=== PATIENT | male | born 1940 | race Caucasian/White ===

== ENCOUNTER 2017-03-20 08:52 | Inpatient (IN) | payer OTHER ==
[2017-03-20] VITALS (40 sets, daily range): BP systolic 81–125; BP diastolic 26–78
[~2017-03-20] VITALS: Ht 157.5 cm; Wt 132.9 kg
[2017-03-20] MEDS ORDERED: PROPOFOL 100 ML IV ONE (08:59)
[2017-03-20] MEDS ORDERED: IV NS 0.9% 500 ML BAG IV ONE (09:00)
--- NOTE | 2017-03-20 09:00 | NUR ---
BBRA 78 FROM [facility]: ALOC AND LOW O2 SAT AT 80'S RA. INTUBATED ASSEMBLER MOVEMENT. BS IN FIELD 131. PATIENT ALERT, NON VERBAL. BREATHING VIA ET TUBE, RT AT BEDSIDE FOR MECHANICAL VENT. O2 WNL. PATIENT IS HYPOTENSIVE, BUT NAD. SAFETY AND COMFORT MEASURES IN PLACE. MD AT BEDSIDE FOR EVAL.
--- NOTE | 2017-03-20 09:30 | NUR ---
RT PT CAME IN WITH RESP DISTRESS INTUBATED BY THE PARAMEDICS W/ 6.5 ETT 25CM AT LIP LINE INTACT AND SECURED, PT REC 100% VIA BAG/MASK. PLACED PT ON VENT WITH AC 600 14 +5 100%, ABG DRAWN RIGHT AFTER PLACING PT ON VENT RESULTING IN HIGH C02, DR REID NOTIFIED, TITRATED 02 60% SP02= 100%. PT SEEMS COMFORTABLE VENT PLUGGED IN RED OUTLET, BAG AND MASK AT BEDSIDE. PT SX LARGE AMOUNT OF THICK PINK- YELLOW SECRETIONS, SAMPLE OBTAINED AND SENT TO LAB. WILL CONTINUE TO MONITOR Addendum: 03/20/17 at 1000 by JAMIL GARCIA RT Amended: Links added. Addendum: 03/20/17 at 1650 by JAMIL GARCIA RT ETT TUBE 7.0, PARAMEDICS GAVE WRONG INFORMATION
[2017-03-20 09:31] LABS: APPEARANCE,URINE CLOUDY (CLEAR); BILIRUBIN,URINE NEGATIVE (NEGATIVE); BLOOD, URINE 1+ Ery/uL (NEGATIVE); COLOR,URINE YELLOW (YELLOW); KETONES,URINE NEGATIVE (NEGATIVE); LEUKOCYTE ESTERASE ,URINE NEGATIVE (NEGATIVE); NITRITE, URINE NEGATIVE (NEGATIVE); PH,URINE 5.5 (5.0-8.0); PROTEIN,URINE 2+ mg/dl (NEGATIVE); UGLUCOSE NEGATIVE (NEGATIVE); UROBILINOGEN,URINE 0.2 EU/dL (0.2)
[2017-03-20 09:33] LABS: BACTERIA,URINE Rare /HPF (None Seen); SQUAMOUS EPITHELIAL CELL,UR Few /HPF (None Seen); WBC,URINE 0-2 /HPF (0-3)
[2017-03-20 09:36] LABS: EOSINOPHILS % (AUTO) 0.1 % (0.0-6.0); HEMATOCRIT 31 % (39-51); HEMOGLOBIN 10.1 g/dL (13.5-17.5); LYMPHOCYTES # (AUTO) 0.6 /CMM (0.8-4.8); LYMPHOCYTES % (AUTO) 4.8 % (20.0-44.0); MEAN CORPUSCULAR HEMOGLOBIN 34 PG (26.0-33.0); MEAN CORPUSCULAR HGB CONC 32 g/dl (31.0-36.0); MEAN CORPUSCULAR VOLUME 107 fL (80-96); MONOCYTES # (AUTO) 0.8 /CMM (0.1-1.30); MONOCYTES % (AUTO) 7.1 % (2.0-12.0); NEUTROPHILS # (AUTO) 10.5 /CMM (1.8-8.9); PLATELET COUNT (AUTO) 128 /CMM (150-450); RDW COEFFICIENT OF VARIATION 17.5 (11.5-15.0); RED BLOOD CELL COUNT(AUTO) 2.95 MIL/uL (4.5-6.0); WHITE BLOOD COUNT (AUTO) 11.9 K/uL (4.3-11.0)
[2017-03-20] MEDS ORDERED: HYDR-4077 PO (09:37)
[2017-03-20] MEDS ORDERED: PANT40TA2 PO (09:37)
[2017-03-20] MEDS ORDERED: BLOO-668 IN (09:37)
[2017-03-20] MEDS ORDERED: NA P133E RC (09:37)
[2017-03-20] MEDS ORDERED: ACET-868 PO (09:37)
[2017-03-20] MEDS ORDERED: FLUT1BLS IH (09:37)
[2017-03-20] MEDS ORDERED: ASPI-1152 PO (09:37)
[2017-03-20] MEDS ORDERED: METO25TA20 PO (09:37)
[2017-03-20] MEDS ORDERED: ALLO300T2 PO (09:37)
[2017-03-20] MEDS ORDERED: BISA10SU8 RC (09:37)
[2017-03-20] MEDS ORDERED: POTA10CA43 PO (09:37)
[2017-03-20] MEDS ORDERED: NITR0.4T48 SL (09:37)
[2017-03-20] MEDS ORDERED: TIOT18CA3 IH (09:37)
[2017-03-20] MEDS ORDERED: MAGN400O6 PO (09:37)
[2017-03-20] MEDS ORDERED: INSU100V27 SQ (09:37)
--- NOTE | 2017-03-20 09:38 | NUR ---
BLOCK INSPECTOR AT BEDSIDE.
[2017-03-20 09:39] LABS: CALCIUM, SERUM 8.6 mg/dL (8.5-10.1); CARBON DIOXIDE 35 mmol/L (21-32); CHLORIDE 103 mmol/L (98-107); CREATININE 2.3 mg/dL (0.6-1.3); GLUCOSE 135 mg/dL (74-106); POTASSIUM 4.9 mmol/L (3.5-5.1); SODIUM SERUM 142 mmol/L (136-145); UREA NITROGEN, BLOOD 43 mg/dL (7-18)
[2017-03-20 09:41] LABS: ABG BASE EXCESS 3.4 mmol/L; ABG PCO2 80.8 mmHg (35.0-45.0); ABG PH 7.226 (7.350-7.450); ABG PO2 223.8 mmHg (75.0-100.0); AaDO2 408.4 mmHg; COHb 0.8 % (0.5-1.5); MetHb 0.2 % (0.0-1.5); SITE, ABG Right Radial; VENT MODE, BG 100% BAG&MASK
[2017-03-20 09:44] LABS: ALANINE AMINOTRANSFERASE 50 U/L (12-78); ALBUMIN 3.1 g/dL (3.4-5.0); ALKALINE PHOSPHATASE 63 U/L (46-116); ASPARTATE AMINOTRANSFERASE 23 U/L (15-37); BILIRUBIN,DIRECT 0.3 mg/dL (0.0-0.2); BILIRUBIN,TOTAL 0.8 mg/dL (0.2-1.0); TOTAL PROTEIN, SERUM 5.7 g/dL (6.4-8.2)
[2017-03-20 09:46] LABS: TROPONIN I 0.074 ng/mL (0.00-0.056)
--- NOTE | 2017-03-20 10:02 | NUR ---
BRIELLE ECHEVARRIA [phone]
[2017-03-20] MEDS ORDERED: VANCOMYCIN 1 GM in IV D5W 250 ML IV SCH (10:30)
[2017-03-20] MEDS ORDERED: LEVOFLOXACIN 750 MG /D5W 150ML 750 MG in PREMIX 1 EA IV SCH (10:30)
--- NOTE | 2017-03-20 11:00 | NUR ---
REPORT GIVEN TO RN, JOB FOR DAVID UPON ADMISSION.
--- NOTE | 2017-03-20 11:10 | NUR ---
PATIENT TRANSPORTED TO ICU 262 VIA ACLS PROTOCOL. RN, JOB TO PROVIDE DAVID. IV LEVAQUIN ENDORSED TO JOB FOR ADMINISTRATION.
--- NOTE | 2017-03-20 11:50 | NUR ---
PT RECVD IN ICU 262. INTUBATED ON VENTILATOR. FAMILY AT BEDSIDE: HE WAS ADMITTED TO [place] February FOR CHF EXACERBATION, WHERE HE GOT DIALYSIS FOR THE FIRST TIME. HE ALSO HAD A PARACENTESIS AT [facility] AND WAS DISCHARGED 4 DAYS LATER MAR 18. HE SPENT 2 DAYS AT [facility] WHERE HIS CONDITION DECLINED. PER ER REPORT, PT WAS INTUBATED IN THE FIELD. DR. BOSTON ON THE UNIT FOR EVAL ADMISSION ORDERS. HD WILL BE DONE TODAY ARRANGED BY DR. ECHEVARRIA. US GUIDED PARACENTESIS ALSO ORDERED BY DR. BOSTON FOR ASCITES. SBP IS LABILE 80-100, DR. BOTSON ORDERS FOR PICC LINE, BUFFING MACHINE OPERATOR SEMIAUTOMATIC NOTIFIED WHO SAYS RENUKA WESLEY WILL BE ABLE TO COME IN FOR PLACEMENT. Addendum: 03/20/17 at 1410 by BAM LINO RN DR. BOSTON RECONCILES MEDICATIONS ORDERS TO STOP ALL THE HOME MEDS. PLACE PT NPO X MEDS, AND ACCUCHECK NPO SLIDING SCALE. LEVOPHED AND DIPRIVAN ORDERED.
[2017-03-20] MEDS ORDERED: PIPERACILLIN /TAZOBACTAM 3.375 G in IV D5W 50 ML IV SCH (12:00)
[2017-03-20] MEDS ORDERED: NOREPINEPHRINE 16 MG in IV D5W 500 ML IV PRN (12:30)
[2017-03-20] MEDS ORDERED: NOREPINEPHRINE 8 MG in IV D5W 500 ML IV PRN (12:30)
[2017-03-20] MEDS: ACETYLCYSTEINE 10% SOLN 400 MG/4 ML VIAL NEB SCH ×3 (12:30→23:30)
[2017-03-20] MEDS ORDERED: IPRATROPIUM NEB FS 0.5 MG/2.5 ML AMPUL.NEB NEB PRN (12:30)
[2017-03-20] MEDS ORDERED: DEXTROSE 50%-WATER 50 ML DISP.SYRIN IV PRN (12:30)
[2017-03-20] MEDS ORDERED: LEVALBUTEROL HCL NEB 1.25 MG/0.5 ML VIAL.NEB NEB SCH (12:30)
[2017-03-20 12:46] LABS: ABG BASE EXCESS 0.7 mmol/L; ABG OXYGEN SATURATION 98.1 % (92.0-98.5); ABG PCO2 55.6 mmHg (35.0-45.0); ABG PH 7.312 (7.350-7.450); ABG PO2 137.5 mmHg (75.0-100.0); AaDO2 229.1 mmHg; COHb 0.3 % (0.5-1.5); MetHb 0.5 % (0.0-1.5); O2Hb 97.3 % (94.0-97.0); PEEP,BG 5 cm H2O; SITE, ABG Right Radial; VENT MODE, BG AC 14 600 60% +5; VT, ABG 600 mL
[2017-03-20] MEDS: methylPREDNISolone SOD SUCC 40 MG/ML VIAL IV SCH ×2 (12:55→16:23)
[2017-03-20] MEDS: HEPARIN SODIUM, PORCINE 5000 UNITS/1 ML VIAL SQ SCH ×2 (12:56→21:07)
[2017-03-20] MEDS: PANTOPRAZOLE 40 MG VIAL IV SCH (12:57)
[2017-03-20] MEDS ORDERED: ALBUMIN 25% 25 GM in PREMIX 1 EA IV PRN (13:00)
[2017-03-20] MEDS ORDERED: ALBUMIN 25% 25 GM in PREMIX 1 EA IV ONE (13:00)
--- NOTE | 2017-03-20 13:18 | NUR ---
RADIOLOGY CALLS STATES THAT THEY ARE UNABLE TO DO THE PARACENTESIS TODAY. ALSO PATIENT, NEEDS TO BE OFF HEPARIN SQ DOSE FOR 24HRS. TARGET TIME FOR THE PARACENTESIS WILL BE THURSDAY. WILL PASS ON IN REPORT TO HOLD THE HEPARIN.
--- NOTE | 2017-03-20 13:34 | NUR ---
pt's Rachel gives TO consent for PICC line. Still awaiting for Dr. Rainey for placement, he states he is at [place] and is coming later today but unable to give specific time. Pt's BP ranging from 80-100.
[2017-03-20] MEDS: ALBUTEROL HALF STRENGTH 1.25 MG/3 ML VIAL.NEB NEB SCH ×2 (13:58→18:55)
[2017-03-20] MEDS: IPRATROPIUM NEB FS 0.5 MG/2.5 ML AMPUL.NEB NEB SCH ×2 (13:58→18:55)
--- NOTE | 2017-03-20 14:08 | NUR ---
HD NURSE IN FOR TREATMENT.
[2017-03-20] MEDS: ALBUMIN 25% 25 GM in PREMIX 1 EA IV PRN (14:13)
--- NOTE | 2017-03-20 16:00 | NUR ---
HD COMPLETE 2200 OUT.
[2017-03-20] MEDS: PROPOFOL 100 ML IV PRN (16:05)
--- NOTE | 2017-03-20 16:41 | NUR ---
RENUKA WESLEY IN, PLACES PICC LINE LEFT UPPER ARM. ORDERS FOR CHEST XRAY FOR PLACEMENT. RADIOLOGY CALLS AND STATES THAT BOTH PORTABLE CHEST XRAYS ARE DOWN (BEING CHARGED) AT THE MOMENT THEY WILL COME SOON POSSIBLE. I TOLD THEM THAT THIS IS A STAT ORDER THAT NEEDS TO BE DONE.
--- NOTE | 2017-03-20 16:58 | NUR ---
CXR TAKEN, RENUKA WESLEY ON THE UNIT READS RESULTS AND OKAYS TO USE PICC LINE.
[2017-03-20] MEDS: BLOOD SUGAR DIAGNOSTIC 1 EACH STRIP IN SCH (19:34)
--- NOTE | 2017-03-20 19:46 | NUR ---
ICU/RN RECEIVED PT SEDATED ON DIPRIVAN AT 8MCG/KG/MIN.ON VENT VIA ORAL ETT,02 SAT 100% 0N 45% FIO2.
[2017-03-20] MEDS: PIPERACILLIN /TAZOBACTAM 2.25 G in IV D5W 50 ML IV SCH (21:05)
[2017-03-20] MEDS ORDERED: IV NS 0.9% 250 ML IV PRN (21:30)
--- NOTE | 2017-03-20 23:00 | NUR ---
ICU/RN SOFT WRIST RESTRAINTS DC'D.
--- NOTE | 2017-03-20 23:56 | NUR ---
Received pt on vent support, pt stable on current settings, no SOB or respiratory distress noted, ventilator is plugged into red outlet, alarms audible and on. Ambu bag at bedside, will continue monitoring per MDS orders. Addendum: 03/20/17 at 2357 by REBEKA TONEY RT Amended: Links added.
[2017-03-20] MEDS: IV NS 0.9% 100 ML IV PRN (23:59)
[2017-03-21] VITALS (63 sets, daily range): BP systolic 88–139; BP diastolic 54–83
[2017-03-21] MEDS: BLOOD SUGAR DIAGNOSTIC 1 EACH STRIP IN SCH ×4 (00:03→17:49)
[2017-03-21] MEDS: IPRATROPIUM NEB FS 0.5 MG/2.5 ML AMPUL.NEB NEB SCH ×4 (01:21→19:12)
[2017-03-21] MEDS: ALBUTEROL HALF STRENGTH 1.25 MG/3 ML VIAL.NEB NEB SCH ×4 (01:21→19:12)
--- NOTE | 2017-03-21 03:15 | NUR ---
ICU/RN TRANSFERRED TO [facility] DREW 11 W/4RN,AND 1RT IN ATTENDANCE.PT AWAKE ALERT FOLLOWS SIMPLE COMMANDS.ON LEVOPHED DRIP AT 2MCG/MIN DIPRIVAN AT 8MCG/KG.MIN.
--- NOTE | 2017-03-21 03:15 | NUR ---
ICU/RN TRANSFERRED TO [facility] MAX11 4RN'S AND 1RT IN ATTENDANCE.PT AWAKE ALERT FOLLOWS COMMANDS.LEVOPHED DRIP REMAINS AT 2MCG/MIN AND DIPRIVAN AT 8MCG/KG/MIN.DENIES PAIN OR DISCOMFORT.
[2017-03-21] MEDS: PROPOFOL 100 ML IV PRN ×2 (04:34→16:04)
[2017-03-21] MEDS: PIPERACILLIN /TAZOBACTAM 2.25 G in IV D5W 50 ML IV SCH (04:43)
[2017-03-21 05:08] LABS: ALANINE AMINOTRANSFERASE 33 U/L (12-78); ALBUMIN 2.7 g/dL (3.4-5.0); ALKALINE PHOSPHATASE 45 U/L (46-116); ASPARTATE AMINOTRANSFERASE 14 U/L (15-37); BILIRUBIN,TOTAL 1.2 mg/dL (0.2-1.0); CALCIUM, SERUM 8.8 mg/dL (8.5-10.1); CARBON DIOXIDE 30 mmol/L (21-32); CHLORIDE 106 mmol/L (98-107); CREATININE 1.9 mg/dL (0.6-1.3); GLUCOSE 146 mg/dL (74-106); MAGNESIUM 1.8 mg/dL (1.8-2.4); POTASSIUM 4.2 mmol/L (3.5-5.1); SODIUM SERUM 146 mmol/L (136-145); TOTAL PROTEIN, SERUM 4.9 g/dL (6.4-8.2); UREA NITROGEN, BLOOD 44 mg/dL (7-18)
[2017-03-21 05:09] LABS: HEMATOCRIT 26 % (39-51); HEMOGLOBIN 8.3 g/dL (13.5-17.5); LYMPHOCYTES # (AUTO) 0.3 /CMM (0.8-4.8); LYMPHOCYTES % (AUTO) 2.6 % (20.0-44.0); MEAN CORPUSCULAR HEMOGLOBIN 34 PG (26.0-33.0); MEAN CORPUSCULAR HGB CONC 33 g/dl (31.0-36.0); MEAN CORPUSCULAR VOLUME 105 fL (80-96); MONOCYTES # (AUTO) 0.4 /CMM (0.1-1.30); MONOCYTES % (AUTO) 3.8 % (2.0-12.0); NEUTROPHILS # (AUTO) 9.7 /CMM (1.8-8.9); NEUTROPHILS % (AUTO) 93.6 % (43.0-81.0); PLATELET COUNT (AUTO) 87 /CMM (150-450); RDW COEFFICIENT OF VARIATION 17.1 (11.5-15.0); RED BLOOD CELL COUNT(AUTO) 2.42 MIL/uL (4.5-6.0); WHITE BLOOD COUNT (AUTO) 10.4 K/uL (4.3-11.0)
[2017-03-21] MEDS: INSULIN REGULAR, HUMAN 100 UNIT/ML 3 ML VIAL SQ PRN ×2 (05:53→17:49)
[2017-03-21 06:05] LABS: LYMPHOCYTES % (MANUAL) 6 % (16-48); METAMYELOCYTES % 1 % (0-0); MONOCYTES % (MANUAL) 5 % (0-11.0); NEUTROPHILS % (MANUAL) 88 (42-76)
--- NOTE | 2017-03-21 07:00 | NUR ---
FRICTION PAINT MACHINE TENDER- Initial Note Received pt orally intubated ETT 6.5, 23 cm @ the lip. Respirations even and unlabored, no sob or distress present. Pt on Diprivan gtt at 8 mcg/min but is arousable by name, awake, alert and able to follow commands. Bedside monitor reveals controlled A-Fib. OGT present and currently clamped. Byers catheter draining to gravity clear, yellow urine. RAC 20G HL and NIRALI PICC line present and running NS @ TKO. Levophed gtt turned off, will monitor BP closely. Safety measures taken: bed locked and in low position, side rails up x2 and bed alarm on, will continue to monitor. Addendum: 03/21/17 at 0745 by KLARISSA MURILLO RN ERROR on previous note: ETT rests at 25 cm @ the lip.
[2017-03-21] MEDS: ACETYLCYSTEINE 10% SOLN 400 MG/4 ML VIAL NEB SCH ×3 (07:35→22:37)
[2017-03-21] MEDS ORDERED: ATOR10TA PO (07:39)
--- NOTE | 2017-03-21 07:58 | NUR ---
PT REC'D INTUBATED VIA 7.0 ETT AT 25CM AT THE LIP. VENT SETTINGS PER MD REQUEST. VENT ALARMS CHECKED AND AUDIBLE PER POLICY. VENT PLUGGED INTO RED OUTLET. AMBU BAG AT HOB. Addendum: 03/21/17 at 0800 by ASYA MENDOZA RT Amended: Links added.
[2017-03-21] MEDS: methylPREDNISolone SOD SUCC 40 MG/ML VIAL IV SCH ×3 (08:24→17:58)
[2017-03-21] MEDS: HEPARIN SODIUM, PORCINE 5000 UNITS/1 ML VIAL SQ SCH ×2 (09:00→20:51)
--- NOTE | 2017-03-21 09:00 | NUR ---
RECEIVING TEAM MEMBER- Sedation Vacation done. Diprivan turned off. Pt awake, alert, calm and able to follow commands. No distress noted. Diprivan restarted at previous rate per protocol. Will continue to monitor.
--- NOTE | 2017-03-21 09:03 | NUR ---
US GUIDED PARACENTESIS WILL BE HOLD UNTIL THURSDAY, NURSE KLARISSA IS AWARE. TALKED TO RN AT 0848 ON 03/21/2017.
[2017-03-21 09:57] LABS: ABG BASE EXCESS 3.1 mmol/L; ABG OXYGEN SATURATION 97.8 % (92.0-98.5); ABG PCO2 45.2 mmHg (35.0-45.0); ABG PH 7.412 (7.350-7.450); ABG PO2 141.7 mmHg (75.0-100.0); AaDO2 127.7 mmHg; COHb 0.3 % (0.5-1.5); MetHb 0.7 % (0.0-1.5); O2Hb 96.8 % (94.0-97.0); PEEP,BG 5 cm H2O; SITE, ABG Right Radial; VENT MODE, BG A/C; VT, ABG 600 mL
--- NOTE | 2017-03-21 10:10 | NUR ---
TICKET DISPENSER CHANGER- Dr. Amato at bedside. Updated md on pt's condition. Md informed of the followin) Levophed off since 7 am, 2) Heparin held this am due to platelet level of 87 and 3) Med recon needs to be done. No new orders received. Will continue to monitor. Addendum: 03/21/17 at 1557 by KLARISSA MURILLO RN Also received orders from for bilateral soft wrist restraints. Orders placed.
[2017-03-21] MEDS: METRONIDAZOLE 500MG/ NS 100ML 500 MG in PREMIX 1 EA IV SCH ×3 (12:22→23:57)
--- NOTE | 2017-03-21 13:00 | NUR ---
PEOPLESOFT CRM DEVELOPER- Dr. Richards at bedside. Updated md on pt's condition. Md aware pt to start dialysis. Per md, will try CPAP trial tomorrow. Order placed. Will continue to monitor.
--- NOTE | 2017-03-21 13:15 | NUR ---
NEON INSTALLER- HD started. HD nurse at bedside. 1515- HD completed. 2L out. Will continue to monitor.
[2017-03-21] MEDS: ALBUMIN 25% 25 GM in PREMIX 1 EA IV PRN (13:44)
[2017-03-21] MEDS: LEVOFLOXACIN 250 MG /D5W 50 ML 250 MG in PREMIX 1 EA IV SCH (15:45)
[2017-03-21] MEDS: PANTOPRAZOLE 40 MG VIAL IV SCH (15:45)
[2017-03-21] MEDS: IV NS 0.9% 100 ML IV PRN (16:03)
--- NOTE | 2017-03-21 20:52 | NUR ---
ICU/KENNEL WORKER PT IS TO HAVE U/S PARACENTESIS ON 03/23/17. PT IS IS TOO BE OFF HEPARIN FOR 24 HRS PLUS LEVEL IS PTT LEVEL IS LOWER. PT WAS TURNED AND REPOSITIONED FOR COMFORT AND CARE.
[2017-03-22] VITALS (33 sets, daily range): BP systolic 95–140; BP diastolic 56–84
[2017-03-22] MEDS: BLOOD SUGAR DIAGNOSTIC 1 EACH STRIP IN SCH ×5 (00:18→22:09)
[2017-03-22] MEDS: INSULIN REGULAR, HUMAN 100 UNIT/ML 3 ML VIAL SQ PRN ×5 (00:21→22:06)
[2017-03-22] MEDS: IPRATROPIUM NEB FS 0.5 MG/2.5 ML AMPUL.NEB NEB SCH ×4 (00:44→19:48)
[2017-03-22] MEDS: ALBUTEROL HALF STRENGTH 1.25 MG/3 ML VIAL.NEB NEB SCH ×4 (00:44→19:48)
[2017-03-22] MEDS: PROPOFOL 100 ML IV PRN (04:33)
[2017-03-22 05:01] LABS: HEMATOCRIT 24 % (39-51); HEMOGLOBIN 7.8 g/dL (13.5-17.5); LYMPHOCYTES # (AUTO) 0.2 /CMM (0.8-4.8); MEAN CORPUSCULAR HEMOGLOBIN 34 PG (26.0-33.0); MEAN CORPUSCULAR HGB CONC 33 g/dl (31.0-36.0); MEAN CORPUSCULAR VOLUME 104 fL (80-96); MONOCYTES # (AUTO) 0.4 /CMM (0.1-1.30); MONOCYTES % (AUTO) 4.3 % (2.0-12.0); NEUTROPHILS # (AUTO) 9.3 /CMM (1.8-8.9); NEUTROPHILS % (AUTO) 93.7 % (43.0-81.0); PLATELET COUNT (AUTO) 85 /CMM (150-450); RDW COEFFICIENT OF VARIATION 17.5 (11.5-15.0); RED BLOOD CELL COUNT(AUTO) 2.29 MIL/uL (4.5-6.0); WHITE BLOOD COUNT (AUTO) 9.9 K/uL (4.3-11.0)
[2017-03-22] MEDS: METRONIDAZOLE 500MG/ NS 100ML 500 MG in PREMIX 1 EA IV SCH ×4 (05:13→23:51)
[2017-03-22 05:15] LABS: CALCIUM, SERUM 8.7 mg/dL (8.5-10.1); CARBON DIOXIDE 31 mmol/L (21-32); CHLORIDE 106 mmol/L (98-107); CREATININE 1.7 mg/dL (0.6-1.3); GLUCOSE 155 mg/dL (74-106); MAGNESIUM 1.7 mg/dL (1.8-2.4); POTASSIUM 3.7 mmol/L (3.5-5.1); SODIUM SERUM 146 mmol/L (136-145); UREA NITROGEN, BLOOD 44 mg/dL (7-18)
[2017-03-22 05:25] LABS: LYMPHOCYTES % (MANUAL) 7 % (16-48); MONOCYTES % (MANUAL) 3 % (0-11.0); NEUTROPHILS % (MANUAL) 90 (42-76)
--- NOTE | 2017-03-22 07:02 | NUR ---
CARPET INSTALLER- Initial Note Received pt orally intubated ETT 6.5, 25 cm @ the lip. Respirations even and unlabored, no sob or distress present. Pt on Diprivan gtt at 8 mcg/min but is arousable by name, awake, alert and able to follow commands. Bedside monitor reveals controlled A-Fib. OGT present and currently clamped. Byers catheter draining to gravity clear, yellow urine. NIRALI PICC line present and running NS @ TKO. Safety measures taken: bed locked and in low position, side rails up x2 and bed alarm on, will continue to monitor.
[2017-03-22] MEDS: ACETYLCYSTEINE 10% SOLN 400 MG/4 ML VIAL NEB SCH ×3 (07:35→23:30)
[2017-03-22] MEDS: HEPARIN SODIUM, PORCINE 5000 UNITS/1 ML VIAL SQ SCH ×2 (08:09→20:01)
[2017-03-22] MEDS: methylPREDNISolone SOD SUCC 40 MG/ML VIAL IV SCH ×3 (08:09→17:07)
[2017-03-22] MEDS ORDERED: Magnesium 1GM/D5W 100ML PREMIX 100 ML IV SCH ×2 (09:30→10:00)
--- NOTE | 2017-03-22 09:30 | NUR ---
ROLLING DOWN MACHINE OPERATOR- Edu turned off for weaning. Pt awake, calm, alert & able to follow commands. 0935- Pt placed on CPAP mode by RT. 1310- Dr. Richards at bedside. ABGs given to md. Obtained verbal order from md for extubation. 1320- Pt extubated by RT and placed on 5L simple mask. at bedside. Will continue to monitor.
[2017-03-22 10:31] LABS: ABG BASE EXCESS 7.2 mmol/L; ABG PH 7.422 (7.350-7.450); ABG PO2 69.6 mmHg (75.0-100.0); AaDO2 84.4 mmHg; COHb 0.3 % (0.5-1.5); MetHb 1.7 % (0.0-1.5); O2Hb 90.2 % (94.0-97.0); SITE, ABG Right Radial; VENT MODE, BG CPAP 5 PS10
[2017-03-22] MEDS: PANTOPRAZOLE 40 MG VIAL IV SCH (12:46)
[2017-03-22] MEDS: LEVOFLOXACIN 250 MG /D5W 50 ML 250 MG in PREMIX 1 EA IV SCH (12:46)
--- NOTE | 2017-03-22 15:10 | NUR ---
DYE RANGE FEEDER- Obtained consent from pt for ultrasound guided paracentesis scheduled for tomorrow. Placed in chart. Will continue to monitor.
[2017-03-22] MEDS ORDERED: DEXTROSE 50%-WATER 50 ML DISP.SYRIN IV PRN (16:00)
[2017-03-22] MEDS: IV NS 0.9% 100 ML IV PRN (17:38)
--- NOTE | 2017-03-22 18:40 | NUR ---
GENERAL LITHOGRAPHIC WORKER- Informed Dr. Amato pt was extubated today and is now on 5L NC and tolerating well. Pt has hx of sleep apnea. Obtained verbal order for nocturnal cpap. RT aware. Will endorse to warehouse supervisor 3rd shift nurse.
--- NOTE | 2017-03-22 20:00 | NUR ---
MECHANICAL FITTER NOTES RECEIVED PTS IN BED A/OX4 ON 5LITERS OF NC WELL TOLERATED SATING 95% NO SOB NO DISTRESS NOTED NO COMPLAIN OF PAIN , ALL NEEDS ATTENDED TOO PER ENDORSEMENT PTS WILL BE ON CPAP AT [facility] , WILL F/U FROM RT JENNIFER. V/S STABLE AFEBRILE , WILL CONTINUE TO MONITOR PTS.
[2017-03-22] MEDS ORDERED: ZOLPIDEM TARTRATE 5 MG TABLET PO PRN (21:00)
--- NOTE | 2017-03-22 21:00 | NUR ---
sustainable agriculture specialist notes place acall to dr collier re pts requting for sleeping pill , spoke to dr collier with order ambien 2 mg tab via po qhs prn and may repeat once , order noted and carried out .
--- NOTE | 2017-03-22 22:00 | NUR ---
multicultural services librarian notes ambien given as ordered, accucheck for 10 pm done with bs of 198 mg/dl , 3 units of regular insulin given per sliding scale given , all needs attended too call light within reach kept pts cleaN DRY AND COMFORTABLE.
--- NOTE | 2017-03-22 22:18 | NUR ---
curriculum consultant notes rt at bedside , pts was put on bipap ipap15, epap -5 as ordered
--- NOTE | 2017-03-22 22:18 | NUR ---
PT PLACED ON NOC BIPAP. RN NOTIFIED. WILL CONTINUE TO MONITOR. Addendum: 03/22/17 at 2218 by JENNIFER LOVE RT Amended: Links added.
--- NOTE | 2017-03-22 22:45 | NUR ---
agricultural extension specialist notes pts dooes not want the bipap rt called , pts was put to cpap 7 fio2 of 35 % well tolerated by pts , will continue to monitor.
--- NOTE | 2017-03-22 22:48 | NUR ---
CHANGED MODE TO CPAP. PT DIDN'T LIKE BIPAP. MORE COMPORTABLE ON CPAP OF 7. RN NOTIFIED. WILL CONTINUE TO MONITOR. Addendum: 03/22/17 at 2250 by JENNIFER LOVE RT Amended: Links added.
[2017-03-23] VITALS (22 sets, daily range): BP systolic 108–166; BP diastolic 49–93
[2017-03-23] MEDS: IPRATROPIUM NEB FS 0.5 MG/2.5 ML AMPUL.NEB NEB SCH ×4 (01:09→19:30)
[2017-03-23] MEDS: ALBUTEROL HALF STRENGTH 1.25 MG/3 ML VIAL.NEB NEB SCH ×4 (01:09→19:30)
[2017-03-23] MEDS: METRONIDAZOLE 500MG/ NS 100ML 500 MG in PREMIX 1 EA IV SCH ×3 (05:01→18:00)
--- NOTE | 2017-03-23 05:12 | NUR ---
PT TAKEN OFF BIPAP. PLACED ON 5L NC. RN NOTIFIED. Addendum: 03/23/17 at 0513 by JENNIFER LOVE RT Amended: Links added.
--- NOTE | 2017-03-23 05:13 | NUR ---
1CU RN NOTES PTS WAS OFF BIPAP CHANGE TO 5 LITERS OF NASAL CANNULA SATING 95% PTS REMAINS NPO FOR PARACENTESIS , WILL ENDORSE TO RN DAY SHIFT FOR CONTINUITY OF CARE.
[2017-03-23 05:28] LABS: HEMATOCRIT 23 % (39-51); HEMOGLOBIN 7.6 g/dL (13.5-17.5); LYMPHOCYTES # (AUTO) 0.1 /CMM (0.8-4.8); LYMPHOCYTES % (AUTO) 1.2 % (20.0-44.0); MEAN CORPUSCULAR HEMOGLOBIN 34 PG (26.0-33.0); MEAN CORPUSCULAR HGB CONC 33 g/dl (31.0-36.0); MEAN CORPUSCULAR VOLUME 105 fL (80-96); MONOCYTES # (AUTO) 0.7 /CMM (0.1-1.30); MONOCYTES % (AUTO) 5.9 % (2.0-12.0); NEUTROPHILS % (AUTO) 92.9 % (43.0-81.0); PLATELET COUNT (AUTO) 103 /CMM (150-450); RDW COEFFICIENT OF VARIATION 17.5 (11.5-15.0); RED BLOOD CELL COUNT(AUTO) 2.22 MIL/uL (4.5-6.0); WHITE BLOOD COUNT (AUTO) 11.8 K/uL (4.3-11.0)
[2017-03-23 05:59] LABS: CALCIUM, SERUM 9.4 mg/dL (8.5-10.1); CARBON DIOXIDE 32 mmol/L (21-32); CHLORIDE 110 mmol/L (98-107); CREATININE 2.1 mg/dL (0.6-1.3); GLUCOSE 200 mg/dL (74-106); POTASSIUM 3.9 mmol/L (3.5-5.1); SODIUM SERUM 149 mmol/L (136-145)
[2017-03-23 06:05] LABS: UREA NITROGEN, BLOOD 62 mg/dL (7-18)
--- NOTE | 2017-03-23 07:03 | NUR ---
CERAMIC RESEARCH ENGINEER- Received pt a/o x4. On 5L NC, respirations even and unlabored, no sob or distress present. Bedside monitor reveals controlled A-Fib. NIRALI PICC line running NS @ TKO. Byers catheter present and draining clear, preston urine. Safety measures taken: bed locked and in low position, side rails up x2, bed alarm on and call light within reach, will continue to monitor.
[2017-03-23] MEDS: ACETYLCYSTEINE 10% SOLN 400 MG/4 ML VIAL NEB SCH ×4 (08:07→23:35)
--- NOTE | 2017-03-23 08:30 | NUR ---
PIGEON FANCIER- Dr. Amato at bedside. Updated md on pt's condition. Obtained new orders for the followin) Pt stable for downgrade to [facility] and 2) give one unit PRBC due to anemia. Orders placed by md. Will continue to monitor.
[2017-03-23] MEDS: PANTOPRAZOLE 40 MG TABLET.DR PO SCH (08:42)
[2017-03-23] MEDS: CARVEDILOL 3.125 MG TABLET PO SCH ×2 (08:42→21:43)
[2017-03-23] MEDS: HEPARIN SODIUM, PORCINE 5000 UNITS/1 ML VIAL SQ SCH (08:43)
[2017-03-23] MEDS: BLOOD SUGAR DIAGNOSTIC 1 EACH STRIP IN SCH ×4 (08:47→21:50)
--- NOTE | 2017-03-23 08:48 | NUR ---
DOWNGRADE O2 FLOW VIA NASAL CANNULA@ 3 LPM. SPO2 98% HR 97 BPM Addendum: 03/23/17 at 0849 by JUAN ALBERTO GRAJEDA RT Amended: Links added.
--- NOTE | 2017-03-23 08:50 | NUR ---
SCHOOL PHOTOGRAPHS DETAILER- Obtained consent from pt for 1 unit PRBC. Placed in chart. Will continue to monitor.
[2017-03-23] MEDS: methylPREDNISolone SOD SUCC 40 MG/ML VIAL IV SCH ×3 (08:54→19:43)
[2017-03-23] MEDS ORDERED: HEPARIN SODIUM, PORCINE 5000 UNITS/1 ML VIAL SQ SCH (09:00)
[2017-03-23 09:14] LABS: THYROID STIMULATING HORMONE 1.615 uIU/mL (0.358-3.74)
--- NOTE | 2017-03-23 12:00 | NUR ---
RURAL MAIL CARRIER- Bedside paracentesis done, 2.2 L of blood fluid removed. Informed Dr. Amato and obtained orders to send fluid for analysis: 1) cell count, 2) culture and 3) albumin. Orders placed. Fluid sent to lab by myself. Pt tolerated procedure well. Will continue to monitor.
[2017-03-23] MEDS ORDERED: ASPI-1152 PO (12:27)
[2017-03-23] MEDS ORDERED: ALLO300T2 PO (12:27)
[2017-03-23] MEDS ORDERED: FLUT1BLS IH (12:27)
[2017-03-23] MEDS ORDERED: ACET-868 PO (12:27)
[2017-03-23] MEDS ORDERED: METO50TA16 PO (12:27)
[2017-03-23] MEDS ORDERED: ACETAMINOPHEN 325 MG TABLET PO PRN (12:30)
[2017-03-23] MEDS: INSULIN REGULAR, HUMAN 100 UNIT/ML 3 ML VIAL SQ PRN ×3 (12:42→21:52)
[2017-03-23] MEDS: FLUTICASONE/VILANTEROL 1 EACH BLST.W.DEV IH SCH (13:29)
[2017-03-23] MEDS: ASPIRIN EC 81 MG TABLET.DR PO SCH (13:30)
[2017-03-23] MEDS ORDERED: EPOETIN ALFA (10,000 UNIT) 10,000 UNIT/ML VIAL SQ SCH (13:30)
--- NOTE | 2017-03-23 14:00 | NUR ---
SUPERVISOR PLATING AND POINT ASSEMBLY- Pt transferred to [facility] Room 110. Care endorsed to Marita HOBBS. Blood transfusion completed. RN aware 1200 & 1300 IV antibiotics are due now and not given earlier due to blood transfusion. All belongings sent with pt.
[2017-03-23] MEDS: LEVOFLOXACIN 250 MG /D5W 50 ML 250 MG in PREMIX 1 EA IV SCH (14:41)
[2017-03-23] MEDS ORDERED: METOPROLOL TARTRATE 50 MG TABLET PO SCH (17:00)
--- NOTE | 2017-03-23 18:00 | NUR ---
Patient having dialysis treatment. Come back later for echo.
[2017-03-23] MEDS: ATORVASTATIN 10 MG TABLET PO SCH (18:30)
--- NOTE | 2017-03-23 19:00 | NUR ---
YOSI RN NOTES PATIENT RESTING IN BED, POST HD, 2L OUTPUT, ANTIBIOTIC DUE TO CLOSE ADMINISTRATION IN TIME AND HD WAS STILL BEING DONE. WILL ENDORSE TO PERFORMANCE MANAGER FOR CONTINUITY OF CARE
--- NOTE | 2017-03-23 20:00 | NUR ---
YOSI RN NOTE PT IN BED AWAKE. A/O X 4, NO SOB, NO DISTRESS OR DISCOMFORT NOTED. DENIES PAIN. ON O2 8L VIA MASK, O2 SAT 93%. FAMILY AT BED SIDE. PICC LINE IN NIRALI INTACT AND PATENT. F/C INTACT AND PATENT DRAINING WELL YELLOWISH COLOR URINE. ALL NEEDS ATTENDED. VSS. CONTINUE TO MONITOR HIM.
--- NOTE | 2017-03-23 20:01 | NUR ---
MEDICARE SALES REPRESENTATIVE NOTE ON TELE A FIB HR 106 CONTROLLED. CONTINUE TO MONITOR
--- NOTE | 2017-03-23 22:00 | NUR ---
YOSI RN NOTE PT IS REQUESTING FOR BIPAP TO PUT ON. RT INFORMED AND BIPAP APPLIED. PT IN NO DISTRESS OR DISCOMFORT AT THIS TIME.
[2017-03-24] VITALS: BP 117/76
[2017-03-24] MEDS: METRONIDAZOLE 500MG/ NS 100ML 500 MG in PREMIX 1 EA IV SCH ×3 (00:49→11:37)
[2017-03-24] MEDS: IPRATROPIUM NEB FS 0.5 MG/2.5 ML AMPUL.NEB NEB SCH ×4 (02:26→19:30)
[2017-03-24] MEDS: ALBUTEROL HALF STRENGTH 1.25 MG/3 ML VIAL.NEB NEB SCH ×4 (02:26→19:30)
[2017-03-24 04:00] VITALS: BP 122/76
--- NOTE | 2017-03-24 04:30 | NUR ---
YOSI RN NOTE BED BATH GIVEN. BM X1 WNL. NO DISTRESS OR DISCOMFORT NOTED. BIPAP MACHINE TURNED OFF BY RT PER PT'S REQUEST. CONTINUE TO MONITOR HIM.
--- NOTE | 2017-03-24 07:15 | NUR ---
YOSI RN NOTE PT IN BED AWAKE. NO CHANGE IN CONDITION. ENDORSE TO NURSE HARSHAD FOR CONTINUE TO CARE.
[2017-03-24] MEDS: ACETYLCYSTEINE 10% SOLN 400 MG/4 ML VIAL NEB SCH ×2 (07:29→15:30)
--- NOTE | 2017-03-24 07:29 | NUR ---
RT NOTE: [facility] NOT GIVEN PHARMACY OUT OF STOCK
[2017-03-24 07:39] LABS: CARBON DIOXIDE 31 mmol/L (21-32); CHLORIDE 108 mmol/L (98-107); CREATININE 1.7 mg/dL (0.6-1.3); GLUCOSE 171 mg/dL (74-106); POTASSIUM 4.3 mmol/L (3.5-5.1); SODIUM SERUM 146 mmol/L (136-145); UREA NITROGEN, BLOOD 49 mg/dL (7-18)
[2017-03-24 07:41] LABS: HEMATOCRIT 27 % (39-51); HEMOGLOBIN 8.9 g/dL (13.5-17.5); LYMPHOCYTES # (AUTO) 0.2 /CMM (0.8-4.8); LYMPHOCYTES % (AUTO) 1.8 % (20.0-44.0); MEAN CORPUSCULAR HEMOGLOBIN 34 PG (26.0-33.0); MEAN CORPUSCULAR HGB CONC 33 g/dl (31.0-36.0); MEAN CORPUSCULAR VOLUME 103 fL (80-96); MONOCYTES # (AUTO) 0.8 /CMM (0.1-1.30); MONOCYTES % (AUTO) 6.9 % (2.0-12.0); NEUTROPHILS # (AUTO) 10.9 /CMM (1.8-8.9); NEUTROPHILS % (AUTO) 91.3 % (43.0-81.0); PLATELET COUNT (AUTO) 99 /CMM (150-450); RDW COEFFICIENT OF VARIATION 20.4 (11.5-15.0); RED BLOOD CELL COUNT(AUTO) 2.62 MIL/uL (4.5-6.0); WHITE BLOOD COUNT (AUTO) 11.9 K/uL (4.3-11.0)
[2017-03-24 08:00] VITALS: BP 132/81
--- NOTE | 2017-03-24 08:01 | NUR ---
YOSI RN NOTE PATIENT IN BED , ALL NEEDS ATTENDED .ON 5L NC SAT 98%. ON TELE MONITOR AFIB HR 95 . WITH VU CATH TO GRAVITY WITH YELLOW COLOR URINE , LT UPPER ARM PICC LINE IN PLACE RT CW PERMCATH IN PLACE .BED IN LOWEST AND LOCKED POSITION , CALL LIGHT WITHIN REACH , LT LOWER AND WITH DRESSING NOTED,WITH WOUND OOZING WITH SEROUS DRAINAGE MOD AMT .WILL MONITOR CLOSELY , HAVING BREAKFAST , ABLE TO EAT SELF ,NOT IN IN DISTRESS AT THIS TIME
[2017-03-24] MEDS: ALLOPURINOL 100 MG TABLET PO SCH (08:14)
[2017-03-24] MEDS: ASPIRIN EC 81 MG TABLET.DR PO SCH (08:15)
[2017-03-24] MEDS: PANTOPRAZOLE 40 MG TABLET.DR PO SCH (08:16)
[2017-03-24] MEDS: methylPREDNISolone SOD SUCC 40 MG/ML VIAL IV SCH ×3 (08:19→16:56)
[2017-03-24] MEDS: FLUTICASONE/VILANTEROL 1 EACH BLST.W.DEV IH SCH (08:25)
[2017-03-24] MEDS: CARVEDILOL 3.125 MG TABLET PO SCH ×2 (08:27→21:46)
[2017-03-24] MEDS: BLOOD SUGAR DIAGNOSTIC 1 EACH STRIP IN SCH ×4 (08:27→21:46)
--- NOTE | 2017-03-24 08:32 | NUR ---
YOSI RN NOTE DR BOSTON AT BEDSIDE , AWARE THAT PATIENT STILL HAS WOUND LEAKAGE S\P PARACENTESIS OK TO CONT PRESSURE DRESSING ON SITE , NO NEW ORDER GIVEN AT THIS TIME
--- NOTE | 2017-03-24 10:15 | NUR ---
YOSI RN NOTE PT AT BEDSIDE ABLE TO MOVE FEW STEPS ,NOW UP ON DIANA, NO SOB ALSO RT AT BEDSIDE DOING ABG
[2017-03-24 10:25] LABS: LYMPHOCYTES % (MANUAL) 2 % (16-48); MONOCYTES % (MANUAL) 4 % (0-11.0); NEUTROPHILS % (MANUAL) 94 (42-76)
[2017-03-24 10:37] LABS: ABG BASE EXCESS 1.3 mmol/L; ABG OXYGEN SATURATION 90.4 % (92.0-98.5); ABG PCO2 61.5 mmHg (35.0-45.0); ABG PH 7.288 (7.350-7.450); ABG PO2 67.6 mmHg (75.0-100.0); AaDO2 88.6 mmHg; COHb 0.1 % (0.5-1.5); MetHb 0.5 % (0.0-1.5); O2Hb 89.9 % (94.0-97.0); SITE, ABG Right Radial; VENT MODE, BG NASALCANNULA
[2017-03-24] MEDS: INSULIN REGULAR, HUMAN 100 UNIT/ML 3 ML VIAL SQ PRN ×3 (11:45→21:52)
[2017-03-24 12:00] VITALS: BP 125/81
[2017-03-24] MEDS: LEVOFLOXACIN 250 MG /D5W 50 ML 250 MG in PREMIX 1 EA IV SCH (13:00)
--- NOTE | 2017-03-24 13:00 | NUR ---
MS RN NOTE PT AT BEDSIDE ,PLACE CBACK TO BED , ALL NEEDS ATTENDED ,KEEP CLEAN DRY ,WILL CONT TO MONITOR CLOSELY
[2017-03-24 16:00] VITALS: BP 132/90
[2017-03-24] MEDS: METRONIDAZOLE 250 MG TABLET PO SCH (17:05)
[2017-03-24] MEDS: ATORVASTATIN 10 MG TABLET PO SCH (17:05)
--- NOTE | 2017-03-24 18:46 | NUR ---
MS RN NOTE HAVING DINNER, ABLE TO EAT SELF, ALL NEEDS ATTENDED ,NOT IN ACUTE DISTRESS
[2017-03-24 20:00] VITALS: BP 119/70
--- NOTE | 2017-03-24 20:00 | NUR ---
MS 1 RN NOTE PT IN BED AWAKE. A/O X 4, NO SOB, NO DISTRESS OR DISCOMFORT NOTED. DENIES PAIN. ON O2 3L VIA NC, O2 SAT 94%. PICC LINE IN NIRALI INTACT AND PATENT. F/C INTACT AND PATENT DRAINING WELL YELLOWISH COLOR URINE. ALL NEEDS ATTENDED. VSS. CONTINUE TO MONITOR HIM.
[2017-03-25] MEDS: METRONIDAZOLE 250 MG TABLET PO SCH ×5 (01:00→23:31)
[2017-03-25] MEDS: IPRATROPIUM NEB FS 0.5 MG/2.5 ML AMPUL.NEB NEB SCH ×4 (01:47→19:31)
[2017-03-25] MEDS: ALBUTEROL HALF STRENGTH 1.25 MG/3 ML VIAL.NEB NEB SCH ×4 (01:47→19:31)
[2017-03-25 04:00] VITALS: BP 119/74
--- NOTE | 2017-03-25 06:53 | NUR ---
MS RN NOTE PT IN BED AWAKE. NO DISTRESS OR DISCOMFORT NOTED. DENIES PAIN. PICC LINE NIRALI INTACT AND PATENT. DRESSING ON LLQ INTACT. SIDE RAILS UP X 3 AND CALL LIGHT WITHIN REACH. WILL ENDORSE TO DAY SHIFT NURSE FOR CONTINUE TO CARE.
[2017-03-25 07:10] LABS: HEMATOCRIT 29 % (39-51); HEMOGLOBIN 9.5 g/dL (13.5-17.5); LYMPHOCYTES # (AUTO) 0.4 /CMM (0.8-4.8); LYMPHOCYTES % (AUTO) 3.7 % (20.0-44.0); MEAN CORPUSCULAR HEMOGLOBIN 34 PG (26.0-33.0); MEAN CORPUSCULAR HGB CONC 32 g/dl (31.0-36.0); MEAN CORPUSCULAR VOLUME 104 fL (80-96); MONOCYTES # (AUTO) 0.6 /CMM (0.1-1.30); MONOCYTES % (AUTO) 5.4 % (2.0-12.0); NEUTROPHILS # (AUTO) 9.9 /CMM (1.8-8.9); NEUTROPHILS % (AUTO) 90.9 % (43.0-81.0); PLATELET COUNT (AUTO) 117 /CMM (150-450); RDW COEFFICIENT OF VARIATION 19.9 (11.5-15.0); RED BLOOD CELL COUNT(AUTO) 2.83 MIL/uL (4.5-6.0); WHITE BLOOD COUNT (AUTO) 10.9 K/uL (4.3-11.0)
[2017-03-25 07:23] LABS: CALCIUM, SERUM 9.5 mg/dL (8.5-10.1); CARBON DIOXIDE 34 mmol/L (21-32); CHLORIDE 106 mmol/L (98-107); CREATININE 1.7 mg/dL (0.6-1.3); GLUCOSE 156 mg/dL (74-106); POTASSIUM 4.1 mmol/L (3.5-5.1); SODIUM SERUM 147 mmol/L (136-145); UREA NITROGEN, BLOOD 56 mg/dL (7-18)
[2017-03-25] MEDS: ACETYLCYSTEINE 10% SOLN 400 MG/4 ML VIAL NEB SCH ×3 (07:35→23:28)
[2017-03-25] MEDS: BLOOD SUGAR DIAGNOSTIC 1 EACH STRIP IN SCH ×4 (07:41→22:02)
[2017-03-25] MEDS: INSULIN REGULAR, HUMAN 100 UNIT/ML 3 ML VIAL SQ PRN ×3 (07:43→22:15)
[2017-03-25 08:00] VITALS: BP_SYST 116; BP_DIAS 78; BP_DIAS 79
[2017-03-25] MEDS: methylPREDNISolone SOD SUCC 40 MG/ML VIAL IV SCH ×3 (08:08→17:39)
[2017-03-25] MEDS: PANTOPRAZOLE 40 MG TABLET.DR PO SCH (08:09)
[2017-03-25] MEDS: CARVEDILOL 3.125 MG TABLET PO SCH ×2 (08:09→22:02)
[2017-03-25] MEDS: ALLOPURINOL 100 MG TABLET PO SCH (08:09)
[2017-03-25] MEDS: ASPIRIN EC 81 MG TABLET.DR PO SCH (08:09)
[2017-03-25] MEDS: FLUTICASONE/VILANTEROL 1 EACH BLST.W.DEV IH SCH (08:10)
[2017-03-25] MEDS ORDERED: INSU100V28 SQ (08:22)
[2017-03-25] MEDS ORDERED: LEVO750T21 PO (08:22)
[2017-03-25] MEDS ORDERED: METR250T PO (08:22)
[2017-03-25] MEDS ORDERED: APIX2.5T PO (08:42)
[2017-03-25] MEDS ORDERED: CARV3.122 PO (08:42)
[2017-03-25] MEDS ORDERED: PRED20TA PO (08:43)
[2017-03-25 09:16] LABS: BAND % (MANUAL) 1 % (0.0-5.0); LYMPHOCYTES % (MANUAL) 2 % (16-48); MONOCYTES % (MANUAL) 6 % (0-11.0); NEUTROPHILS % (MANUAL) 91 (42-76)
[2017-03-25 09:26] LABS: ABG BASE EXCESS 4.2 mmol/L; ABG PCO2 69.7 mmHg (35.0-45.0); ABG PH 7.282 (7.350-7.450); ABG PO2 70.6 mmHg (75.0-100.0); AaDO2 61.4 mmHg; COHb 0.7 % (0.5-1.5); MetHb 0.4 % (0.0-1.5); SITE, ABG Right Radial
--- NOTE | 2017-03-25 10:15 | NUR ---
DR. MCDONALD REVIEWED ABG AND HELD D/C,DR. BOSTON NOTIFIED AND DR. BOSTON WANT TO INCREASE PRESSURE SUPPORT TO ,PER DR. MCDONALD HE WILL TAKE CARE OF BIPAP SETTING,RT AWARE.
[2017-03-25] MEDS: APIXABAN 2.5 MG TABLET PO SCH ×2 (10:53→17:39)
[2017-03-25] MEDS: LEVOFLOXACIN 250 MG /D5W 50 ML 250 MG in PREMIX 1 EA IV SCH (12:34)
--- NOTE | 2017-03-25 15:44 | NUR ---
CLARIFIED WITH DR. MCDONALD BIPAP SETTING CHANGED TO 25/10 RT SHU NOTIFIED,WILL ENDORSED TO NIGHT RT AND RN.
[2017-03-25 16:00] VITALS: BP 105/68
[2017-03-25] MEDS: ATORVASTATIN 10 MG TABLET PO SCH (17:39)
--- NOTE | 2017-03-26 00:34 | NUR ---
RN NOTE SPOKE WITH DR LEIGH BECAUSE PT CAN NOT SLEEP DUE TO NEW BIPAP SETTING. PT REQUESTED AMBIEN. PER DR LEIGH, DO NOT GIVE ANY SLEEP MEDICATION BECAUSE OF HIS RESPIRATORY STATUS. WILL CONTINUE TO MONITOR PT.
--- NOTE | 2017-03-26 01:15 | NUR ---
RN NOTES RECEIVED PATIENT IN BED ASLEEP, EASILY AROUSABLE. NO SIGNS OF ACUTE DISTRESS NOTED. NO SIGNS OF PAIN NOTED. IV SITE PATENT, INTACT; FLUSHED. HC CATH INTACT. VU CATH INTACT DRAINING CLEAR DARK YELLOW URINE. BIBAP IN USE. ON LOW BED WITH BILATERAL UPPER SIDE RAILS UP. CALL DEL ANGEL WITHIN EASY REACH. WILL CONTINUE TO MONITOR.
[2017-03-26] MEDS: ALBUTEROL HALF STRENGTH 1.25 MG/3 ML VIAL.NEB NEB SCH ×3 (01:27→13:58)
[2017-03-26] MEDS: IPRATROPIUM NEB FS 0.5 MG/2.5 ML AMPUL.NEB NEB SCH ×3 (01:27→13:58)
--- NOTE | 2017-03-26 04:30 | NUR ---
RN NOTES PATIENT REQUESTED TO BE TAKEN OFF BIPAP. EDUCATION REGARDING BENEFIT OF BIPAP GIVEN. PATIENT STILL REQUESTED TO HAVE BIPAP TAKEN OFF. PATIENT DISCONNECTED FROM BIPAP. PATIENT HAS BEEN VERY UNCOMFORTABLE WITH THE BIPAP ON THE NEW SETTING. RT MADE AWARE.
[2017-03-26] MEDS: METRONIDAZOLE 250 MG TABLET PO SCH ×3 (05:03→16:54)
--- NOTE | 2017-03-26 06:06 | NUR ---
RN NOTES PATIENT AWAKE. RESPIRATIONS EVEN. DENIES ANY PAIN AT THIS TIME. NO SYMPTOMS OF HYPER/HYPOGLYCEMIA. DUE MED GIVEN WITH NO ASE NOTED. NEEDS ATTENDED. SAFETY PRECAUTIONS AND COMFORT MEASURES IN PLACE. WILL GIVE REPORT TO DAY SHIFT FOR CONTINUITY OF CARE.
[2017-03-26] MEDS: ACETYLCYSTEINE 10% SOLN 400 MG/4 ML VIAL NEB SCH ×2 (07:35→15:30)
[2017-03-26 08:00] VITALS: BP 116/76
--- NOTE | 2017-03-26 08:00 | NUR ---
MS RN NOTE PATIENT IN BED , ALL NEEDS ATTENDED , ALERT ,ORIENTED ,ON 2L NC SAT 96%. WITH RT AT BEDSIDE BREATHING TX DINE , AND DOING ABG PER DR BOSTON ORDER , WITH VU CATH TO GRAVITY WITH YELLOW COLOR URINE , NIRALI PICC LINE IN PLCE , NO S\S INFECTION NOTED , LT HAND WITH SWOLLEN NOTED KEEP ELEVATED AT ALL TIME, PLAN OF CARE DISCUSSED WITH PATINT WILL CONT TO MONITOR CLOSELY , BED IN LOWEST AND LOCKED POSITION
[2017-03-26] MEDS: ASPIRIN EC 81 MG TABLET.DR PO SCH (08:05)
[2017-03-26] MEDS: APIXABAN 2.5 MG TABLET PO SCH ×2 (08:06→16:53)
[2017-03-26] MEDS: methylPREDNISolone SOD SUCC 40 MG/ML VIAL IV SCH ×3 (08:06→16:52)
[2017-03-26] MEDS: ALLOPURINOL 100 MG TABLET PO SCH (08:06)
[2017-03-26] MEDS: PANTOPRAZOLE 40 MG TABLET.DR PO SCH (08:07)
[2017-03-26] MEDS: CARVEDILOL 3.125 MG TABLET PO SCH (08:07)
[2017-03-26] MEDS: INSULIN REGULAR, HUMAN 100 UNIT/ML 3 ML VIAL SQ PRN ×2 (08:12→12:13)
[2017-03-26] MEDS: BLOOD SUGAR DIAGNOSTIC 1 EACH STRIP IN SCH ×3 (08:14→16:53)
[2017-03-26 08:16] LABS: ABG BASE EXCESS 4.9 mmol/L; ABG PCO2 61.5 mmHg (35.0-45.0); ABG PH 7.334 (7.350-7.450); AaDO2 54.1 mmHg; COHb 0.2 % (0.5-1.5); MetHb 0.2 % (0.0-1.5); O2Hb 92.6 % (94.0-97.0); SITE, ABG Left Radial
[2017-03-26] MEDS: FLUTICASONE/VILANTEROL 1 EACH BLST.W.DEV IH SCH (08:20)
--- NOTE | 2017-03-26 09:29 | NUR ---
MS RN NOTE DR VILLATORO AWARE OF ABG RESULT, RT SPOKE WITH HIM Addendum: 03/26/17 at 0931 by HARSHAD OVALLES RN SOLUMDEROL 20 MG IVP F WAS GIVEN EARLIER
--- NOTE | 2017-03-26 10:36 | NUR ---
ms rn note spoke with dr saleh and dr amira shah to discharge to snf , also per dr amira shah to remove Byers cath and picc line , dr Saleh notifyed about abg result
[2017-03-26] MEDS: LEVOFLOXACIN 250 MG /D5W 50 ML 250 MG in PREMIX 1 EA IV SCH (12:11)
--- NOTE | 2017-03-26 12:23 | NUR ---
CHIP PERSON NOTE SPOKE WITH REHAN DIRECTOR PROPERTY ABOUT DC ,STATED THAT FAMILY REFUSED TO GO [facility], STATED THAT WILL LOOKING PLACE
--- NOTE | 2017-03-26 13:39 | NUR ---
MS RN NOTE VU CATH REMOVED ,SEEN BY PT WILL F\U
[2017-03-26 16:05] VITALS: BP 110/65
--- NOTE | 2017-03-26 16:06 | NUR ---
MS RN NOTE SPOKE WITH REHAN ISOTOPE TECHNOLOGIST, STATED THAT AWAITING CONFIRMATION FROM INSURANCE TO DISCHARGE PATIENT, AND PATENT NOTIFIED
[2017-03-26] MEDS: ATORVASTATIN 10 MG TABLET PO SCH (17:00)
--- NOTE | 2017-03-26 18:00 | NUR ---
MS RN NOTE ABLE TO URINATE SMALL AMT OF URINE AFTER REMOVED VU
--- NOTE | 2017-03-26 18:32 | NUR ---
MS RN NOTE AMBULANCE ARRIVED, REPORT GIVEN , PICC LINE REMOVED UNDER STERIL TECHNIC PRESSURE DRESSING APPLIED FOR 5 MIN . CALLED TO [facility] SPOKE WITH ANA CRISTINA HOBBS REPORT GIVEN , PRUDENCE AWARE THAT PATIENT IS LEAVING TO SNF, TAKEN TO SNF WITH STABLE CONDITION , BLOOD SUGAR 222 MG\ DL,REFUSED COVERAGE AND EAT DINNER , BELONGING SIGNED,
== END 2017-03-26 18:31 | DRG 871 ==
LOC: ER 08:54 → ICU 10:13 → TELE-TD 03-23 14:25 → TELE1 03-24 08:20 → MEDSG1 03-24 12:13
PROVIDERS: ADMIT Internal Medicine; ATTEND Internal Medicine
PROC: 5A1945Z Respiratory Ventilation, 24-96 Consecutive Hours (ICD-10-PCS; principal; 2017-03-20)
PROC: 5A1D70Z Performance of Urinary Filtration, Intermittent, Less than 6 Hours Per Day (ICD-10-PCS; 2017-03-20)
PROC: 5A1D70Z Performance of Urinary Filtration, Intermittent, Less than 6 Hours Per Day (ICD-10-PCS; 2017-03-21)
PROC: 5A09457 Assistance with Respiratory Ventilation, 24-96 Consecutive Hours, Continuous Positive Airway Pressure (ICD-10-PCS; 2017-03-23)
PROC: 5A1D70Z Performance of Urinary Filtration, Intermittent, Less than 6 Hours Per Day (ICD-10-PCS; 2017-03-23)
PROC: 0W9G3ZX Drainage of Peritoneal Cavity, Percutaneous Approach, Diagnostic (ICD-10-PCS; 2017-03-23)
PROC: 30233N1 Transfusion of Nonautologous Red Blood Cells into Peripheral Vein, Percutaneous Approach (ICD-10-PCS; 2017-03-23)
PROC: 5A1D70Z Performance of Urinary Filtration, Intermittent, Less than 6 Hours Per Day (ICD-10-PCS; 2017-03-25)
DX: A41.9 Sepsis, unspecified organism (principal); J96.20 Acute and chronic respiratory failure, unspecified whether with hypoxia or hypercapnia; J69.0 Pneumonitis due to inhalation of food and vomit; R65.21 Severe sepsis with septic shock; G93.41 Metabolic encephalopathy; I13.2 Hypertensive heart and chronic kidney disease with heart failure and with stage 5 chronic kidney disease, or end stage renal disease; E11.22 Type 2 diabetes mellitus with diabetic chronic kidney disease; D69.6 Thrombocytopenia, unspecified; N18.6 End stage renal disease; I50.23 Acute on chronic systolic (congestive) heart failure; E66.2 Morbid (severe) obesity with alveolar hypoventilation; J44.0 Chronic obstructive pulmonary disease with (acute) lower respiratory infection; J44.1 Chronic obstructive pulmonary disease with (acute) exacerbation; I27.29 Other secondary pulmonary hypertension; I27.81 Cor pulmonale (chronic); Z99.2 Dependence on renal dialysis; I11.0 Hypertensive heart disease with heart failure; E78.5 Hyperlipidemia, unspecified; I25.10 Atherosclerotic heart disease of native coronary artery without angina pectoris; Z79.4 Long term (current) use of insulin; Z79.82 Long term (current) use of aspirin; Z79.899 Other long term (current) drug therapy; Z87.891 Personal history of nicotine dependence; D53.9 Nutritional anemia, unspecified; I48.2 Chronic atrial fibrillation; K59.00 Constipation, unspecified
CPT/HCPCS: 31720; 36415; 36600; 71045-TC; 76942-TC; 80048-TC; 80053-TC; 80076-TC; 80305; 81000-TC; 82728-TC; 82803-TC; 82962-TC; 83540-TC; 83605-TC; 83735-TC; 84443-TC; 84484-TC; 85025-TC; 85730-TC; 86850-TC; 86921-TC; 87040-TC; 87070-TC; 87075-TC; 87081-TC; 87086-TC; 89051-TC; 90935-TC; 93307-TC; 94002-TC; 94003-TC; 94760-TC; 94762-TC; 94799-TC; 97112-TC; 97116-TC; 97530-TC; A4216; A4606; A6402; A6403; C1751; C9113; J0885; J1644; J1815; J1956; J2543; J2920; J3370; J3475; J3490; J7030; J7050; J7060; P9016-BL; P9047; Z7610